=== PATIENT | male | born 1960 | race Caucasian/White ===

== ENCOUNTER 2019-08-19 15:31 | Outpatient (RCR) | payer BC ==
[~2019-08-19 15:31] MED LIST: CEPHALEXIN500 M1 PO; NO HOME MEDICATIONS; NORCO 325 MG-51 TAB PO
== END 2019-11-17 | disposition still patient (30) ==
LOC: MKS.ESL.OT
DX: M18.11 Unilateral primary osteoarthritis of first carpometacarpal joint, right hand (principal)

== ENCOUNTER → 2021-09-20 | Outpatient (CLI) | payer BC | LOC: COL.RAD 12:27 | DX: M16.11 Unilateral primary osteoarthritis, right hip (principal) | CPT/HCPCS: J3301; Q9967 ==

== ENCOUNTER → 2021-11-28 | Day surgery (SDC) | payer BC ==
[~2021-11-28] VITALS: Ht 175.3 cm; Wt 93.3 kg
[~2021-11-28] MED LIST changes: +LAMISIL250 M1 PO
[2021-11-28 08:25] VITALS: BP 134/98; PULSE 71; TEMP 97.2
[2021-11-28 11:21] VITALS: TEMP 97.3
[2021-11-28 11:35] VITALS: BP 124/92; PULSE 65
--- NOTE | 2021-11-28 11:35 | NUR ---
PATIENT TAKEN TO RECOVERY BAY 2 POST PROCEDURE. PATIENT VERY GROGGY, MOVED TO CHAIR WITH 2 PERSON ASSIST. MADE COMFORTABLE IN CHAIR, WARM BLANKETS PROVIDED.
[2021-11-28 11:50] VITALS: BP 109/90; PULSE 63
[2021-11-28 12:04] VITALS: BP 128/90; PULSE 58
[2021-11-28 12:20] VITALS: BP 122/93; PULSE 55
--- NOTE | 2021-11-28 12:20 | NUR ---
PATIENT UP TO BATHROOM TO VOID. NO DIFFICULTY. WALKS BACK TO CHAIR UNASSISTED. GIVEN MUFFINE AND JELLO TO EAT.
--- NOTE | 2021-11-28 13:03 | NUR ---
PATIENT UP AND DRESSED. ALERT AND READY TO GO HOME. IV SITE TO RIGHT HAND DISCONTINUED @1300. DISMISSAL INSTRUCTIONS GIVEN, EXPLANATION DONE AND WRITTEN COPIES PROVIDED. GIVES VERBAL UNDERSTANDING.
--- NOTE | 2021-11-28 13:20 | NUR ---
PATIENT DISMISSED VIA WHEELCHAIR ACCOMPANIED BY RN TO WAITING HIGHWAY MAINTENANCE SUPERVISOR.
== END ==
LOC: SDCO 08:09
DX: Z12.11 Encounter for screening for malignant neoplasm of colon (principal); D12.0 Benign neoplasm of cecum; D12.2 Benign neoplasm of ascending colon; D12.3 Benign neoplasm of transverse colon; E66.9 Obesity, unspecified; Z68.30 Body mass index [BMI] 30.0-30.9, adult; E78.2 Mixed hyperlipidemia; M16.11 Unilateral primary osteoarthritis, right hip; B35.1 Tinea unguium; M18.12 Unilateral primary osteoarthritis of first carpometacarpal joint, left hand; M18.11 Unilateral primary osteoarthritis of first carpometacarpal joint, right hand; Z79.899 Other long term (current) drug therapy; Z79.1 Long term (current) use of non-steroidal anti-inflammatories (NSAID)
CPT/HCPCS: J2704; J7030